=== PATIENT | female | born 1975 | race Caucasian/White ===

== ENCOUNTER → 2019-05-16 17:41 | Outpatient (CLI) | payer BC, SELFPAY ==
--- NOTE | ~2019-05-16 | MM_ITS ---
EXAMINATION: MM screening sanjiv BI w silviano HISTORY: Screening mammogram, family history of breast cancer in her sister. TECHNIQUE: Craniocaudal and mediolateral oblique 3-D tomosynthesis images were obtained and synthetic 2-D images were generated. CAD analysis was submitted and interpreted. COMPARISON: 04/29/2018, 04/26/2017, 04/22/2016 BREAST PARENCHYMAL COMPOSITION: The breasts are heterogeneously dense, which may obscure small masses . FINDINGS: There is no evidence of suspicious mass, calcification, or architectural distortion to sugg est malignancy in either breast. There has been no suspicious interval change. IMPRESSION: 1. No mammographic evidence of malignancy. 2. Recommend routine screening mammography in one year. BI-RADS Category 1: Negative Reviewed, dictated and finalized at location A.
== END ==
PROVIDERS: Visit Provider Nurse Practitioner
DX: Z12.31 Encounter for screening mammogram for malignant neoplasm of breast (principal)
CPT/HCPCS: 77063; 77067

== ENCOUNTER → 2020-08-02 15:14 | Outpatient (CLI) | payer BC, SELFPAY ==
--- NOTE | ~2020-08-02 | MM_ITS ---
EXAMINATION: MM screening sanjiv BI w silviano HISTORY: Screening mammogram TECHNIQUE: Craniocaudal and mediolateral oblique 3-D tomosynthesis images were obtained and synthetic 2-D images were generated. CAD analysis was submitted and interpreted. COMPARISON: 05/16/2019, 04/29/2018, 04/26/2017, 04/22/2016 bilateral digital screening mammogram examinat ions BREAST PARENCHYMAL COMPOSITION: The breasts are heterogeneously dense, which may obscure small masses . FINDINGS: Asymmetric focal circumscribed masses are suggested in the posterior inner right breast on cc view (craniocaudal Tomosynthesis image 32/86). Diagnostic right mammogram and right breast ultraso und examination are recommended. Otherwise there is no evidence of suspicious mass, calcification, or architectural distortion to sugg est malignancy in either breast. There has been no other suspicious interval change. IMPRESSION: 1. Asymmetric focal circumscribed masses are suggested in posterior inner right breast on CC projecti on 2. Diagnostic right mammogram and right breast ultrasound examination are recommended. BI-RADS Category 0: Incomplete: Needs additional imaging evaluation. Reviewed, dictated and finalized at location A. IMPRESSION: 1. Asymmetric focal circumscribed masses are suggested in posterior inner right breast on CC projection 2. Diagnostic right mammogram and right breast ultrasound examination are recom mended. BI-RADS Category 0: Incomplete: Needs additional imaging evaluation.
== END ==
PROVIDERS: PCP Nurse Practitioner Family; Visit Provider Nurse Practitioner
DX: Z12.31 Encounter for screening mammogram for malignant neoplasm of breast (principal); R92.8 Other abnormal and inconclusive findings on diagnostic imaging of breast
CPT/HCPCS: 77063; 77067

== ENCOUNTER → 2020-08-28 08:43 | Outpatient (CLI) | payer BC, SELFPAY ==
--- NOTE | ~2020-08-28 | MMUS_ITS ---
EXAMINATION: MM diagnostic mammo unilat RT, US breast RT complete HISTORY: Asymmetric focal circumscribed masses in posterior inner right breast on 08/02/2020 screening mammogram TECHNIQUE: Additional 3-D tomosynthesis images of the right breast were performed and synthetic 2-D i mages were generated. CAD analysis was submitted and interpreted. High resolution complete right nayana st ultrasound was performed. COMPARISON: 08/02/2020 bilateral digital screening mammogram FINDINGS: MAMMOGRAPHIC FINDINGS: There is heterogeneous nodular appearing fibroglandular stroma which may obscure one or more masses. An at least 1 cm partially circumscribed mass with halo sign is evident at the mid inner right breast (ML Tomosynthesis image 49/78). Complete right breast ultrasound examination was performed. ULTRASOUND: 12:00 2 cm from nipple: Parallel circumscribed 2.4 x 4.9 x 6 mm sonolucency consistent with small cys t 1:00 3 cm from nipple: 1.4 x 3.6 x 5.3 mm cyst 2:00 3 cm from nipple: 6 x 22 x 30 mm septated cyst 3:00 4 cm from nipple: Irregular and angular hypoechoic approximately 2.6 x 5 mm solid lesion with ni pple-like projection and some posterior shadowing; ultrasound-guided biopsy is recommended. 4:00 3 cm from nipple: Parallel circumscribed 2.9 x 5.1 x 5 mm lesion without suspicious shadowing 6:00 3 cm from nipple: Parallel circumscribed hypoechoic 4.2 x 7 x 4.8 mm lesion with through transmi ssion and posterior enhancement, likely benign, probably a cyst 9:00 4 cm from nipple: Probable septated 5.3 x 9 mm cyst 10:00 5 cm from nipple: 3.2 x 5.4 mm circumscribed lymph node and 2.3 x 4.9 x 5.6 mm circumscribed ly mph node 11:00 4 cm from nipple: 5.6 x 3.5 x 4.8 mm cyst IMPRESSION: 1. Irregular and angular 2.6 x 5 mm lesion with nipple-like projection and some posterior shadowing a t 3:00 4 cm from nipple 2. Ultrasound-guided biopsy is recommended BI-RADS category 4, suspicious findings. Dr. Danielle telephoned the report and ultrasound guided biopsy recommendation on 08/28/[address] Anjum Archibald Reviewed, dictated and finalized at location A. IMPRESSION: 1. Irregular and angular 2.6 x 5 mm lesion with nipple-like projection and some posterior shadowing at 3:00 4 cm from nipple 2. Ultrasound-guided biopsy is recommended BI-RADS category 4, suspicious findings. Dr. Danielle telephoned the report and ultrasound guided biopsy recommendation on at [address] Anjum Archibald
== END ==
PROVIDERS: PCP Nurse Practitioner Family; Visit Provider Obstetrics & Gynecology
DX: R92.8 Other abnormal and inconclusive findings on diagnostic imaging of breast (principal)
CPT/HCPCS: 76641; 77065